=== PATIENT | female | born 1970 | race Caucasian/White ===

== ENCOUNTER → 2023-11-13 14:53 | Outpatient (REF) | payer OTHER, SELFPAY | LOC: WDC 14:53 | PROVIDERS: ATTENDING PHYSICIAN Obstetrics & Gynecology; FAMILY PHYSICIAN Family Medicine | DX: R92.8 Other abnormal and inconclusive findings on diagnostic imaging of breast (principal) | CPT/HCPCS: 76642 ==

== ENCOUNTER → 2023-12-10 06:27 | Day surgery (SDC) | payer OTHER, SELFPAY | LOC: GI 06:27 | PROVIDERS: ATTENDING PHYSICIAN Internal Medicine Gastroenterology | DX: Z12.11 Encounter for screening for malignant neoplasm of colon (principal); Z86.010 Personal history of colon polyps; K64.8 Other hemorrhoids; D12.2 Benign neoplasm of ascending colon; K63.5 Polyp of colon | CPT/HCPCS: 45385; 45380; 88305 ==

== ENCOUNTER 2024-06-10 06:17 | Day surgery (SDC) | payer OTHER, SELFPAY ==
[2024-05-27 09:33] VITALS: BMI 26.7
[2024-05-27 10:37] LABS: Hematocrit 44.8 % (37.0-47.0); Hemoglobin 15.2 g/dL (12.0-16.0); Mean Corp Hgb Conc. 33.9 g/dL (33.0-37.0); Mean Corpuscular Hgb 31.3 pg (27.0-31.0); Mean Corpuscular Volume 92.4 fL (81.0-99.0); Mean Platelet Volume 9.2 fL (7.4-10.4); Platelet Count 251 10^3/uL (130-400); Red Blood Cell Count 4.85 10^6/uL (4.20-5.40); Red Cell Dist. Width 14.4 % (11.5-14.5); White Blood Cell Count 7.3 10^3/uL (4.8-10.8)
[2024-05-27 11:30] LABS: Blood Urea Nitrogen 10 mg/dl (7-17); Calcium 9.1 mg/dl (8.4-10.2); Carbon Dioxide 21 mmol/L (22-30); Chloride 108 mmol/L (98-107); Estimated Creatinine Clearance 65 ml/min; Glucose 77 mg/dl (70-99); Sodium 142 mmol/L (135-145); eGFR > 60.00
[2024-06-10] VITALS (9 sets, daily range): BP systolic 122–150; BP diastolic 74–103; BMI 26.7
[2024-06-10] MEDS: TYLENOL 1000 MG PO (08:17)
== END 2024-06-10 12:10 | disposition home or self-care (01) ==
LOC: SDS 06:17
PROVIDERS: ATTENDING PHYSICIAN Otolaryngology; FAMILY PHYSICIAN Family Medicine
DX: J34.2 Deviated nasal septum (principal); J34.3 Hypertrophy of nasal turbinates; R31.0 Gross hematuria
CPT/HCPCS: 30520; 30140; 36415; 80048; 85027; 93005

== ENCOUNTER 2024-09-21 16:14 | Inpatient (IN) | payer OTHER, SELFPAY ==
[2024-09-21] VITALS (29 sets, daily range): BP systolic 49–160; BP diastolic 31–116; BMI 27.2
--- NOTE | 2024-09-21 10:24 | EDRN ---
This RN informed patient of wait and was instructed to return to the . Pt stated ' Are you serious? I came in by ambulance and have to sit in the waiting room?' Pt informed that EKG and blood tests were performed and that even when arriving via
EMS a patient can be sent to the waiting room. Pt again very angry towards this RN and stated ' I can not believe that since I came by ambulance I am going to the waiting room'. Pt again informed that the bloodwork and EKG were performed and the ER
doctor reviewed the EKG. Pt shown where the triage bathroom was to change out of gown. Pt then ambulated with steady gait to the waiting room.
[2024-09-21 10:38] LABS: % Basophils 0.9 % (0-2); % Eosinophils 2.8 % (0-6); % Immature Granulocytes 0.4 % (0-0.5); % Lymphocytes 40.6 % (20.5-51.1); % Monocytes 7.1 % (1.7-9.3); % Neutrophils 48.2 % (42.2-75.2); Absolute Basophils 0.1 10^3/uL (0-0.2); Absolute Eosinophils 0.2 10^3/uL (0-0.7); Absolute Lymphocytes 2.8 10^3/uL (1.2-3.4); Absolute Monocytes 0.5 10^3/uL (0.1-0.6); Absolute Neutrophils 3.3 10^3/uL (1.4-6.5); Hematocrit 46.6 % (37.0-47.0); Hemoglobin 15.5 g/dL (12.0-16.0); Mean Corp Hgb Conc. 33.3 g/dL (33.0-37.0); Mean Corpuscular Hgb 30.5 pg (27.0-31.0); Mean Corpuscular Volume 91.6 fL (81.0-99.0); Nucleated Red Blood Cells % 0 %; Platelet Count 240 10^3/uL (130-400); Red Blood Cell Count 5.09 10^6/uL (4.20-5.40); Red Cell Dist. Width 13.5 % (11.5-14.5); White Blood Cell Count 6.8 10^3/uL (4.8-10.8)
[2024-09-21 10:48] LABS: ALT (SGPT) 12 U/L (0-35); AST (SGOT) 19 U/L (14-36); Albumin 4.9 g/dl (3.5-5.0); Alkaline Phosphatase 60 U/L (38-126); Blood Urea Nitrogen 15 mg/dl (7-17); Calcium 9.1 mg/dl (8.4-10.2); Carbon Dioxide 21 mmol/L (22-30); Chloride 107 mmol/L (98-107); Glucose 93 mg/dl (70-99); Potassium 3.8 mmol/L (3.5-5.1); Sodium 140 mmol/L (135-145); Total Bilirubin 0.8 mg/dl (0.2-1.3); Total Protein 7.7 g/dl (6.3-8.2); eGFR 59.71
[2024-09-21 10:59] LABS: Troponin I 0.025 ng/ml
--- NOTE | 2024-09-21 12:16 | ED.GENMED ---
History of Present Illness
<Lashon Kim PA-C - Last Filed: 09/21/24 15:34>
General
Chief Complaint: Chest Pain
Source: patient
Exam Limitations: none
Time Seen by Provider: 09/21/24 12:15
Nursing documentation reviewed up to this point in time: agreed with
History of Present Illness
History of Present Illness:
This is a 54-year-old female with past medical history of GERD presents emergency department today with concerns of midsternal chest pain radiating to left arm. She reports that this started this morning when she woke up. She got up and noticed
that while she was walking the pain seemed to get worse. She alerted her who helped her down the stairs and she almost collapsed in his arms due to the pain. She also notes some lightheadedness and shortness of breath with this as well.
She has not had any thing like this before. Patient does note that she has had bad heartburn the past few days and has been taking Tums without relief. She denies any upper back pain. She states that she vapes daily and her father and grandfather
had a large heart attack. She notes that when she called EMS, she received nitro and aspirin en route and this did seem to help her symptoms. Denies any fevers or chills, nausea or vomiting.
Past History
<Lashon Kim PA-C - Last Filed: 09/21/24 15:34>
Past History
ED Past Medical History: Other (migraines)
ED Past Surgical History: None
Social History
Tobacco: Non-smoker
Alcohol: None
Drug: None
Living: with family
Review of Systems
<Lashon Kim PA-C - Last Filed: 09/21/24 15:34>
Review of Systems
All Other Systems: ROS reviewed and negative except as documented in HPI and ROS
Phy Exam
<Lashon Kim PA-C - Last Filed: 09/21/24 15:34>
Physical Exam
Physical Exam:
General: Patient is well appearing and in no acute distress; non-toxic
Skin: Warm and dry, no rashes or lesions
Head: Normocephalic, atraumatic
Eyes: Sclera non-icteric. EOMs intact.
Cardiac: Regular rate and rhythm, no murmurs
Peripheral Vascular: 2+ radial pulses bilaterally
Pulm: Normal respiratory effort, no wheezes, rales, or rhonchi
Neuro: CN II-XII intact, no focal neurologic deficits. Sensation intact bilaterally.
Psychiatric: Appropriate mood and affect.
Scores
<Lashon Kim PA-C - Last Filed: 09/21/24 15:34>
Heart Score for Chest Pain Patients
STEMI patient?: No
History: Highly Suspicious
ECG: Nonspecific Repolarization
Age: >45 - <65 years
Risk Factors: 1 or 2 Risk Factors
Troponin: </= Normal Limit
Heart Score for Chest Pain Patients: 5
Heart Score Risk: 20.3% MACE over next 6 weeks
Course
<Lashon Kim PA-C - Last Filed: 09/21/24 15:34>
Orders/Labs/Results
Orders:
Orders
09/21/24 10:09
Electrocardiogram (*1) Urgent
Reason for Study: Chest Pain
09/21/24 10:10
EKG- Treatment ONCE
09/21/24 10:19
Complete Blood Count/With Diff Urgent
Comprehensive Metabolic Panel Urgent
Troponin I Urgent
09/21/24 12:28
Nitroglycerin Sublingual [Nitrostat (Sublingual)] 0.4 mg SL NOW STA
09/21/24 12:29
Electrocardiogram (*1) Urgent
Reason for Study: Chest Pain
09/21/24 12:30
EKG- Treatment ONCE
09/21/24 12:38
CR Chest - 2 Views Urgent
Comment:
Reason For Exam: substernal chest pain, shortness of breath
09/21/24 13:41
Troponin I Urgent
09/21/24 14:29
CARDIOLOGY CONSULT Urgent
Consulting Provider: Pasquale Felicinao
Was physician already notified: Yes
09/21/24 14:33
Heparin 4,000 units IV NOW STA
Heparin Protocol- PTT Orders As Directed
PTT per Heparin protocol: -Obtain CBC and baseline PTT - if not already collected.
-Obtain PTT 6 hours from start of infusion. Then, every 6 hours until 2 consecutive
PTT's are therapeutic. Then, PTT Daily.
-With each rate change, obtain PTT every 6 hours until 2 consecutive PTT's are
therapeutic. Then, PTT Daily.
Notify MD As Directed
Notify physician if: PTT is greater than or equal to 200.
09/21/24 14:39
Heparin 5,000 units .ROUTE .STK-MED ONE
Nitroglycerin 100 mg/250 ml [Nitroglycerin Premix] 100 mg in 250 ml .ROUTE .STK-MED
09/21/24 14:45
PTT Urgent
Comment: Obtain baseline before beginning heparin infusion if not already collected
Heparin 30508 Units/250 ml 25,000 units in 250 ml IV PER PROTOCOL
Weight to be used for heparin protocol in kilograms (kg):: 73
Protocol:: Cardiac Tx/Acute Coronary
PTT Goal Range to be used:: PTT 73 to 111 seconds
Order type:: Initial
INITIAL Infusion Dose (UNITS/KG/hr) & then follow protocol:: 15 units/kg/hr
Infusion Dose in UNITS/hr & then follow protocol (UNITS/hr):: 1,100
INFUSION RATE in mL/hr & then follow protocol (mL/hr):: 11
PTT less than or equal to 64 seconds:: Increase rate by 200 units/hr (+ 2 mL/hr)
PTT 64.1 to 72.9 seconds:: Increase rate by 100 units/hr (+ 1 mL/hr)
PTT 73 to 111 seconds:: Target Range. No change in rate.
PTT 111.1 to 130.9 seconds:: Decrease rate by 100 units/hr (- 1 mL/hr)
PTT 131 to 199.9 seconds:: HOLD for 1 hr. Then decrease rate by 200 units/hr (- 2 mL/hr)
PTT greater than or equal to 200 seconds:: HOLD for 2 hrs & Notify Provider. Then decrease by 200 units/hr (-
2 mL/hr)
Lab follow-up:: Each change, PTT q6h until 2 consecutive are therapeutic. Then PTT
daily.
09/21/24 14:55
EKG [Electrocardiogram (*1)] Stat
Reason for Study: Chest Pain
EKG- Treatment ONCE
09/21/24 Dinner
NPO
Allow oral meds: Yes
Allow clear liquids: Sips of Clears
Nitroglycerin 100 mg/250 ml [Nitroglycerin Premix] 100 mg in 250 ml IV PER PROTOCOL
Initial dose in mcg/min, then titrate:: 10
Titrate to keep:: Chest Pain Free
Titrate by mcg/min:: 5 mcg/min, may increase by 10 mcg/min if dose > 20 mcg/min
Frequency of titrations (minutes):: every 3-5 minutes
Maximum dose in mcg/min:: 200
Begin to taper infusion when:: Remained at goal for 2hrs
Taper by mcg/min:: 5 mcg/min
Frequency of taper (minutes) if patient maintains goal:: 30
Taper to off?: Yes
If infusion off & no longer maintaining goal:: Contact Provider
09/21/24 15:09
Ticagrelor [Brilinta] 180 mg .ROUTE .STK-MED ONE
09/21/24 15:17
Metoprolol [Lopressor] 25 mg PO NOW STA
09/21/24 15:21
Code Status As Directed
Resuscitation Status: Full Code
09/21/24 15:22
Admit Patient As Directed
Co-Sign Provider:
Level of Care: Inpatient admission
Assign to:: IVU
Physician / Group: [facility]LAUS, Dr. CLARA Feliciano
Diagnosis: NSTEMI
Reason for Hospitalization: NSTEMI, ACS
Expected length of stay greater than two midnights?: Yes
ELOS- Estimated Length of Stay in days: 2
I certify the patient meets the requirements for IP care: Yes
Activity As Directed
Activity Level: Out of Bed- Ad Maricel
Activity Frequency: Ad Maricel
Milk Deliverer Procedure As Directed
Cardiac Cath Procedure: cardiac catheterization
Notify MD As Directed
Notify physician if: immediately for chest pain or bleeding from access site(s)
Radial Artery Hemostasis Method As Directed
Instructions:: 3 mL out at 1 hour post placement of band
3 mL out at 1 1/2 hours post placement of band
3 mL out at 2 hours post placement of band
Off at 2 1/2 hours post placement of band
If any oozing or hemotoma occurs:: re-inflate band and call provider
Site Checks As Directed
Check access site for bleeding/hematoma: Yes
Comment: on arrival, Q15min x4, Q30min x2, Q1 hr x2, Q2 hr x2, Q4 hr or per
protocol
Vascular Checks As Directed
Location: distal to access site - pulse check
Frequency: Other
Comment: on arrival, Q15min x4, Q30min x2, Q1 hr x2, Q2 hr x2, Q4 hr or per protocol
Vital Signs As Directed
Frequency: Other
Additional Instructions:: on arrival, Q15min x4, Q30min x2, Q1 hr x2, Q2 hr x2, then Q4 hr or per unit
protocol
PRN Pain Medication Management As Directed
May give lesser potent ordered pain med per pt: Yes
preference::
Protocol:: Medication orders for pain may be administered in a
manner that supports deferring to patient preference
when the pt is:
- Requesting an ordered lesser potent pain medication.
Least to most potent pain medications are defined
as: acetaminophen < NSAID < tramadol < opioids
(morphine, oxycodone, hydromorphone).
- Requesting a lesser dose of the same medication IF
ORDERED.
- Requesting a less intrusive route of administration
if both routes are prescribed by the provider (PO <
IV).
09/23/24 06:00
Complete Blood Count/No Diff Q2D
Comment: Notify MD if platelet count is <130,000 or decreases by 50% from baseline
09/25/24 06:00
Complete Blood Count/No Diff Q2D
Comment: Notify MD if platelet count is <130,000 or decreases by 50% from baseline
09/27/24 06:00
Complete Blood Count/No Diff Q2D
Comment: Notify MD if platelet count is <130,000 or decreases by 50% from baseline
09/29/24 06:00
Complete Blood Count/No Diff Q2D
Comment: Notify MD if platelet count is <130,000 or decreases by 50% from baseline
10/01/24 06:00
Complete Blood Count/No Diff Q2D
Comment: Notify MD if platelet count is <130,000 or decreases by 50% from baseline
10/03/24 06:00
Complete Blood Count/No Diff Q2D
Comment: Notify MD if platelet count is <130,000 or decreases by 50% from baseline
10/05/24 06:00
Complete Blood Count/No Diff Q2D
Comment: Notify MD if platelet count is <130,000 or decreases by 50% from baseline
10/07/24 06:00
Complete Blood Count/No Diff Q2D
Comment: Notify MD if platelet count is <130,000 or decreases by 50% from baseline
Abnormal Lab Results
09/21/24 09/21/24
10:19 13:41
Carbon Dioxide 21 L mmol/L
(22-30)
Creatinine 1.1 H mg/dL
(0.6-1.0)
Troponin I 0.597 H* D ng/ml
09/21/24 10:19
09/21/24 10:19
Vital Signs
Initial and Last Documented VS:
Initial Vital Signs
Temp Pulse Resp BP Pulse Ox
98.5 F 98 18 149/102 97
09/21/24 10:20 09/21/24 10:20 09/21/24 10:20 09/21/24 10:20 09/21/24 10:20
Last Documented Vital Signs
Temp Pulse Resp BP Pulse Ox
98.5 F 94 8 140/98 96
09/21/24 10:20 09/21/24 15:25 09/21/24 12:47 09/21/24 15:25 09/21/24 15:20
<Pallavi Alvarez MD - Last Filed: 09/21/24 15:12>
Orders/Labs/Results
Orders:
Orders
09/21/24 10:09
Electrocardiogram (*1) Urgent
Reason for Study: Chest Pain
09/21/24 10:10
EKG- Treatment ONCE
09/21/24 10:19
Complete Blood Count/With Diff Urgent
Comprehensive Metabolic Panel Urgent
Troponin I Urgent
09/21/24 12:28
Nitroglycerin Sublingual [Nitrostat (Sublingual)] 0.4 mg SL NOW STA
09/21/24 12:29
Electrocardiogram (*1) Urgent
Reason for Study: Chest Pain
09/21/24 12:30
EKG- Treatment ONCE
09/21/24 12:38
CR Chest - 2 Views Urgent
Comment:
Reason For Exam: substernal chest pain, shortness of breath
09/21/24 13:41
Troponin I Urgent
09/21/24 14:29
CARDIOLOGY CONSULT Urgent
Consulting Provider: Pasquale Feliciano
Was physician already notified: Yes
09/21/24 14:33
Heparin 4,000 units IV NOW STA
Heparin Protocol- PTT Orders As Directed
PTT per Heparin protocol: -Obtain CBC and baseline PTT - if not already collected.
-Obtain PTT 6 hours from start of infusion. Then, every 6 hours until 2 consecutive
PTT's are therapeutic. Then, PTT Daily.
-With each rate change, obtain PTT every 6 hours until 2 consecutive PTT's are
therapeutic. Then, PTT Daily.
Notify MD As Directed
Notify physician if: PTT is greater than or equal to 200.
09/21/24 14:39
Heparin 5,000 units .ROUTE .STK-MED ONE
Nitroglycerin 100 mg/250 ml [Nitroglycerin Premix] 100 mg in 250 ml .ROUTE .STK-MED
09/21/24 14:45
PTT Urgent
Comment: Obtain baseline before beginning heparin infusion if not already collected
Heparin 09739 Units/250 ml 25,000 units in 250 ml IV PER PROTOCOL
Weight to be used for heparin protocol in kilograms (kg):: 73
Protocol:: Cardiac Tx/Acute Coronary
PTT Goal Range to be used:: PTT 73 to 111 seconds
Order type:: Initial
INITIAL Infusion Dose (UNITS/KG/hr) & then follow protocol:: 15 units/kg/hr
Infusion Dose in UNITS/hr & then follow protocol (UNITS/hr):: 1,100
INFUSION RATE in mL/hr & then follow protocol (mL/hr):: 11
PTT less than or equal to 64 seconds:: Increase rate by 200 units/hr (+ 2 mL/hr)
PTT 64.1 to 72.9 seconds:: Increase rate by 100 units/hr (+ 1 mL/hr)
PTT 73 to 111 seconds:: Target Range. No change in rate.
PTT 111.1 to 130.9 seconds:: Decrease rate by 100 units/hr (- 1 mL/hr)
PTT 131 to 199.9 seconds:: HOLD for 1 hr. Then decrease rate by 200 units/hr (- 2 mL/hr)
PTT greater than or equal to 200 seconds:: HOLD for 2 hrs & Notify Provider. Then decrease by 200 units/hr (-
2 mL/hr)
Lab follow-up:: Each change, PTT q6h until 2 consecutive are therapeutic. Then PTT
daily.
09/21/24 14:55
EKG [Electrocardiogram (*1)] Stat
Reason for Study: Chest Pain
EKG- Treatment ONCE
09/21/24 Dinner
NPO
Allow oral meds: Yes
Allow clear liquids: Sips of Clears
Nitroglycerin 100 mg/250 ml [Nitroglycerin Premix] 100 mg in 250 ml IV PER PROTOCOL
Initial dose in mcg/min, then titrate:: 10
Titrate to keep:: Chest Pain Free
Titrate by mcg/min:: 5 mcg/min, may increase by 10 mcg/min if dose > 20 mcg/min
Frequency of titrations (minutes):: every 3-5 minutes
Maximum dose in mcg/min:: 200
Begin to taper infusion when:: Remained at goal for 2hrs
Taper by mcg/min:: 5 mcg/min
Frequency of taper (minutes) if patient maintains goal:: 30
Taper to off?: Yes
If infusion off & no longer maintaining goal:: Contact Provider
09/21/24 15:09
Ticagrelor [Brilinta] 180 mg .ROUTE .STK-MED ONE
09/21/24 15:17
Metoprolol [Lopressor] 25 mg PO NOW STA
09/21/24 15:21
Code Status As Directed
Resuscitation Status: Full Code
09/21/24 15:22
Admit Patient As Directed
Co-Sign Provider:
Level of Care: Inpatient admission
Assign to:: IVU
Physician / Group: KLAUS, Dr. CLARA Feliciano
Diagnosis: NSTEMI
Reason for Hospitalization: NSTEMI, ACS
Expected length of stay greater than two midnights?: Yes
ELOS- Estimated Length of Stay in days: 2
I certify the patient meets the requirements for IP care: Yes
Activity As Directed
Activity Level: Out of Bed- Ad Maricel
Activity Frequency: Ad Maricel
Milk Deliverer Procedure As Directed
Cardiac Cath Procedure: cardiac catheterization
Notify MD As Directed
Notify physician if: immediately for chest pain or bleeding from access site(s)
Radial Artery Hemostasis Method As Directed
Instructions:: 3 mL out at 1 hour post placement of band
3 mL out at 1 1/2 hours post placement of band
3 mL out at 2 hours post placement of band
Off at 2 1/2 hours post placement of band
If any oozing or hemotoma occurs:: re-inflate band and call provider
Site Checks As Directed
Check access site for bleeding/hematoma: Yes
Comment: on arrival, Q15min x4, Q30min x2, Q1 hr x2, Q2 hr x2, Q4 hr or per
protocol
Vascular Checks As Directed
Location: distal to access site - pulse check
Frequency: Other
Comment: on arrival, Q15min x4, Q30min x2, Q1 hr x2, Q2 hr x2, Q4 hr or per protocol
Vital Signs As Directed
Frequency: Other
Additional Instructions:: on arrival, Q15min x4, Q30min x2, Q1 hr x2, Q2 hr x2, then Q4 hr or per unit
protocol
PRN Pain Medication Management As Directed
May give lesser potent ordered pain med per pt: Yes
preference::
Protocol:: Medication orders for pain may be administered in a
manner that supports deferring to patient preference
when the pt is:
- Requesting an ordered lesser potent pain medication.
Least to most potent pain medications are defined
as: acetaminophen < NSAID < tramadol < opioids
(morphine, oxycodone, hydromorphone).
- Requesting a lesser dose of the same medication IF
ORDERED.
- Requesting a less intrusive route of administration
if both routes are prescribed by the provider (PO <
IV).
09/23/24 06:00
Complete Blood Count/No Diff Q2D
Comment: Notify MD if platelet count is <130,000 or decreases by 50% from baseline
09/25/24 06:00
Complete Blood Count/No Diff Q2D
Comment: Notify MD if platelet count is <130,000 or decreases by 50% from baseline
09/27/24 06:00
Complete Blood Count/No Diff Q2D
Comment: Notify MD if platelet count is <130,000 or decreases by 50% from baseline
09/29/24 06:00
Complete Blood Count/No Diff Q2D
Comment: Notify MD if platelet count is <130,000 or decreases by 50% from baseline
10/01/24 06:00
Complete Blood Count/No Diff Q2D
Comment: Notify MD if platelet count is <130,000 or decreases by 50% from baseline
10/03/24 06:00
Complete Blood Count/No Diff Q2D
Comment: Notify MD if platelet count is <130,000 or decreases by 50% from baseline
10/05/24 06:00
Complete Blood Count/No Diff Q2D
Comment: Notify MD if platelet count is <130,000 or decreases by 50% from baseline
10/07/24 06:00
Complete Blood Count/No Diff Q2D
Comment: Notify MD if platelet count is <130,000 or decreases by 50% from baseline
Abnormal Lab Results
09/21/24 09/21/24
10:19 13:41
Carbon Dioxide 21 L mmol/L
(22-30)
Creatinine 1.1 H mg/dL
(0.6-1.0)
Troponin I 0.597 H* D ng/ml
09/21/24 10:19
09/21/24 10:19
Vital Signs
Initial and Last Documented VS:
Initial Vital Signs
Temp Pulse Resp BP Pulse Ox
98.5 F 98 18 149/102 97
09/21/24 10:20 09/21/24 10:20 09/21/24 10:20 09/21/24 10:20 09/21/24 10:20
Last Documented Vital Signs
Temp Pulse Resp BP Pulse Ox
98.5 F 94 8 140/98 96
09/21/24 10:20 09/21/24 15:25 09/21/24 12:47 09/21/24 15:25 09/21/24 15:20
Kelylt;Lashon Kim PA-C - Last Filed: 09/21/24 15:34>
MDM/Problems Addressed
Differential Diagnosis Includes:
ACS, pneumothorax, PE
MDM/Problems Addressed:
54-year-old female presents emergency department today with concerns of chest pain radiating to the left arm. She called EMS and received aspirin from her received nitro en route to the ER. I gave her another dose of nitro which helped
with the pain. Her initial troponin was 0.025 and her repeat troponin was 0.597, she still has pain present, cardiology notified. Dr. Feliciano in the see patient. Patient will go to the senior cytogenetics laboratory director. Nitro drip and heparin drip initiated. Case discussed
with hospitalist. Patient referred for admission.
Chronic conditions affecting care:
GERD, diverticulitis
<Lashon Kim PA-C - Last Filed: 09/21/24 15:34>
*Pulse Oximetry
Patient hypoxic: no
Data Reviewed
Review of Other/Old Records Reveals: Records (Reviewed ER physician documentation from 05/05/2018 patient seen for bite wound, no previous hospital discharge summaries to review)
Source: patient and records
<Pallavi Alvarez MD - Last Filed: 09/21/24 15:12>
*Critical Care Note
Total Time (30-74mins, 75-104mins- exclusive of procedures): 45
comment:
Critical care statement: A total of 45 minutes of critical care time was provided for this patient. This includes management of unstable vital signs, evaluation of the patient at bedside, reviewing the patient's pertinent medical records, ordering
and reviewing studies, arranging urgent treatment with development of a management plan, evaluating patient's response to treatment, frequent reassessment, and discussion with consultants. This time was separate from time utilized to perform the
aforementioned documented procedures.
<Lashon Kim PA-C - Last Filed: 09/21/24 15:34>
Patient Management
Discussion with other providers: Auto Transmission Mechanic (cardiology)
Escalation/DeEscalation of care consider admission/obs:
case discussed with my attending
ED Attending Note
<Lashon Kim PA-C - Last Filed: 09/21/24 15:34>
-
Portions of this chart may have been created with voice recognition software.� Occasional wrong word or��sound alike� substitutions may have occurred due to the inherent limitations of voice recognition software.
<Pallavi Alvarez MD - Last Filed: 09/21/24 15:12>
ED Attending Note
Patient seen and examined by attending physician: Yes
I performed the substantive portion of visit, reviewed & personally made and approve the management plan that is documented in note by myself or HARISH.: Yes
ED Attending Note:
I have seen and evaluated the patient with a [id number] encounter. I have spoken to the [PA] and involved in the medical history, the physical exam, medical decision making.
Evaluation and management service: agree unless noted differently below.
Results interpretation: agree unless noted differently below.
54-year-old woman with history of feeding emergency room with chest pain. Patient states that around 9:30 AM she was laying in bed when she developed midsternal chest pain. It continued to worsen and started to radiate down her left arm. She has
been having some shortness of breath associated with it. She does state over the past few days has been having some reflux that she is been taking Tums for. She called her who is going to bring her however patient stated the pain severely
worsened so they called 911. Upon their arrival they gave her nitroglycerin as well as aspirin. She states the pain is 3 out of 10 from a 10 out of 10. She does state that her grandfather early from heart attack. Patient has never
seen cardiology. No hemoptysis leg swelling or recent travel. She has never had any chest pain with exertion before or any chest pain like this
GENERAL: in no acute distress
HEENT: normocephalic, extraocular movements intact, moist oral mucosa
NECK: normal inspection
RESPIRATORY: no respiratory distress, clear to auscultation bilaterally
CARDIOVASCULAR: regular rate and rhythm, 2+ radial pulses bilaterally
ABDOMEN/: soft, non-distended, non-tender to palpation, no rebound or guarding
EXTREMITIES: non-tender, no edema/swelling
NEUROLOGIC: awake and alert, moves all extremities
SKIN: warm
54-year-old woman presenting to the emergency department chest pain. Vitals are unremarkable and exam is reassuring. Concern for ACS. History exam not consistent with PE. Consider dissection however less likely given story. Will check x-ray.
Initial blood work does show a troponin of 0.025 EKG per my interpretation with normal sinus rhythm however will repeat EKG to see if there is any dynamic changes.
Repeat EKG without any significant changes per my interpretation. Delta troponin is positive. We did discuss with cardiology who evaluated patient at bedside. We are proceeding with heparin drip as well as a nitro drip. She will go up to the
Milk Deliverer. She already received aspirin. Will give Brilinta as well.
Discharge Plan
Departure
Patient Disposition: Admit
Date of Disposition: 09/21/24
Time of Disposition: 15:13
Admit to: Med/Surg
Presentation/result/management discussed w/ accepting MD/DO: Hospitalist
Patient with high blood pressure during this ER visit?: Yes
Condition: Fair
Discharge Problem:
Non-ST elevation MS (NSTEMI)
Prescriptions:
No Action
amitriptyline 50 mg Tablet
50 mg PO HS
topiramate [Topamax] 100 mg Tablet
125 mg PO HS
Patient Comments:
migraines
eszopiclone [Lunesta] 3 mg Tablet
3 mg PO HS
Nurtec ODT 75 mg Tablet,Disintegrating
75 mg PO DAILYPRN PRN (Reason: migraines)
cholecalciferol (vitamin D3) [Vitamin D3] 125 mcg (5,000 unit) Tablet
125 mcg PO DAILY
hydrocodone-acetaminophen 7.5-325 mg tablet
1 tab PO BIDPRN PRN (Reason: severe pain)
magnesium oxide 500 mg magnesium Tablet
500 mg PO MOWEFR
naproxen 500 mg tablet
500 mg PO DAILY
Referrals:
Jacobo Bear MD [Family Provider] -
Interventions
Interventions:
*Risk Screen - Suicide Last Done: 09/21/24 10:20
*General Assessment Last Done: 09/21/24 10:20
*Neglect/Abuse Screening Last Done: 09/21/24 10:20
ED- Cardiac Assessment Last Done: 09/21/24 12:48
Discharge Date and Time
Print Language: TURKMEN
[2024-09-21] MEDS: NITROSTAT (SUBLINGUAL) 0.4 MG SL (12:47)
[2024-09-21 14:19] LABS: Troponin I 0.597 ng/ml
[2024-09-21] MEDS: HEPARIN 4000 UNITS IV (14:46)
[2024-09-21] MEDS: HEPARIN 25000 UNITS/250 ML IV (14:54)
[2024-09-21] MEDS: NITROGLYCERIN PREMIX 250 IV (14:56)
--- NOTE | 2024-09-21 15:07 | CON.CAR ---
Addendum entered and electronically signed by Pasquale Feliciano MD 09/21/24 16:29:
54-year-old woman with history of migraines, possibly GERD had been having symptoms of substernal discomfort better with Gaviscon over the last 2 weeks. This morning she awoke with a different substernal discomfort and pressure/heaviness radiating
to the left arm associated with shortness of breath. She was given aspirin and 911 was called. She received nitro in the emergency department and in the ambulance with some improvement. Pain was 10 out of 10, and has improved but persisted down
to 2-3 out of 10.
PMH: As above
PSH: Appendectomy, orthopedic surgery
SH: , 2 children with a 34-year-old who has special needs, smoked many years ago, smokes, no alcohol, , employed
FH: Not markedly positive for premature CAD
Medications, allergies: Per summary screen
Pleasant 54-year-old woman in mild distress, 140/98, pulse 90s, resp rate 8, afebrile, head neck exam unremarkable, lungs clear, regular rate and rhythm, no murmurs or gallops abdomen benign pulses intact extremities without clubbing cyanosis or
edema,
EKG #2 with MA segment depression and subtle diffuse ST segment elevation, cannot exclude septal FL
Hemoglobin 15.5 white count 6.8, troponin 0.6, was 0.25, creatinine 1.1, CO2 21
Impression:
Suspected ACS/non-ST segment elevation FL
Consider pericarditis
History of migraines
Plan:
Aspirin/heparin/IV nitro -ticagrelor ordered
Proceed to Quality Technician
Discussed with patient at length.
Original Note:
Consultation
Consultation Request
Date/Time Consultation Requested: 09/21/24
Date/Time Consultation Performed: 09/21/24
Requesting Provider: Jluio HARDY in the ER
Performing Provider: Dr. CLARA Feliciano
Reason for Consultation: Chest pain, elevated Troponin
Medical History
-
History of Present Illness:
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 Patient has been having chest pain for the last 2 weeks described as heartburn that is worse with meals and relieved with Gaviscon. No exertional
chest pain. Patient awoke this morning with different chest pain described as a heavier pressure-like pain from the time she awoke. Pain radiating to LUE which was also new. Patient's ahd to help her with walking due to pain and they called
911. Patient had improvement in chest pain with NTG SL x1 in ambulance. Patient also given aspirin en route to . Chest pain recurred in the ER and additional NTG SL x1 given with improvement, but not complete resolution of pain. Cardiology called
to come and see patient.
PMH:
h/o migraine HAs
Past Medical History
Past Medical History: Other (in HPI)
Past Surgical History: Appendectomy and Orthopedic
Social History
Tobacco: Non-Smoker (but smokes)
Alcohol: None
Drug: None
Personal:
Living: With Family
Employment: Employed
Family History
Family History: CAD (father and paternal grandfather with h/o FL)
Allergies / Home Medications
Allergy/AdvReac Type Severity Reaction Status Date / Time
cyclobenzaprine HCl Allergy seizure Verified 09/21/24 10:20
[From Flexeril]
BEES Allergy Swelling Uncoded 06/10/24 07:54
�Medication �Instructions �Recorded �Confirmed �Type
amitriptyline 50 mg tablet 50 mg PO HS 06/04/24 09/21/24 History
cholecalciferol (vitamin D3) 125 125 mcg PO DAILY 06/04/24 09/21/24 History
mcg (5,000 unit) tablet (Vitamin
D3)
eszopiclone 3 mg tablet (Lunesta) 3 mg PO HS 06/04/24 09/21/24 History
rimegepant 75 mg disintegrating 75 mg PO DAILYPRN PRN migraines 06/04/24 09/21/24 History
tablet (Nurtec ODT)
topiramate 100 mg tablet (Topamax) 125 mg PO HS 06/04/24 09/21/24 History
hydrocodone 7.5 mg-acetaminophen 1 tab PO BIDPRN PRN severe pain 09/21/24 09/21/24 History
325 mg tablet
magnesium oxide 500 mg PO MOWEFR 09/21/24 09/21/24 History
naproxen 500 mg tablet 500 mg PO DAILY 09/21/24 09/21/24 History
Review of Systems
-
History Source: Patient and Family ( sitting bedside)
All other systems: Negative unless noted
Physical Exam
Vital Signs
Temp Pulse Resp BP Pulse Ox
98.5 F 87 8 147/103 100
09/21/24 10:20 09/21/24 14:47 09/21/24 12:47 09/21/24 14:47 09/21/24 14:47
GEN: NAD. AAOx3
HEENT: EOMI, MMM
LUNGS: RA. CTA B/L, no wheeze
CV: SR on tele. Reg, S1/S2, no murmur
ABD: soft, BS+, NT, ND
EXT: No clubbing, cyanosis, lesions or edema B/L
NEURO: Gross non-focal
SKIN: Warm, dry and pink. No rash
Lab Results
09/21/24 10:19
09/21/24 10:19
Troponin I 0.597 ng/ml H* D 09/21/24 13:41
Impression / Plan
-
PCP: Brian FP
Card: None
Impression:
Chest pain/ACS
NSTEMI
h/o migraine HAs
Plan:
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 Patient has been having chest pain for the last 2 weeks described as heartburn that is worse with meals and relieved with Gaviscon. No exertional
chest pain. Patient awoke this morning with different chest pain described as a heavier pressure-like pain from the time she awoke. Pain radiating to LUE which was also new. Patient's ahd to help her with walking due to pain and they called
911. Patient had improvement in chest pain with NTG SL x1 in ambulance. Patient also given aspirin en route to . Chest pain recurred in the ER and additional NTG SL x1 given with improvement, but not complete resolution of pain. Cardiology called
to come and see patient.
-ECG reviewed by me is SR without acute ST changes.
-BP 151/102 upon my arrival to room and then 147/103 on repeat by me. Will start Nitro gtt at 10 mcg now and then titrate until pain free.
-Heparin bolus 4000 units and then gtt ordered by me
-Aspirin given prior to arrival.
-IT APPLICATIONS DEVELOPER giving Brilinta loading dose using verbal order in the ER.
-Will give Lopressor 25 mg PO x1 now
-Patient was not taking any BP meds prior to admission.
-Trend Troponin. Initial Troponin 0.025 then 0.597. Will manage as NSTEMI/ACS for now.
-Check CVE in AM. Patient was not taking a statin prior to admission.
-Check echo
Scores
DICK for NSTEMI
Age >/= 65: No
>/=3 CAD risk factors-HTN,High Chol,Fam hx CAD,DM,Smoker: No
Known CAD (stenosis >/=50%): No
ASA use in past 7 days: No
Severe angina (>/= 2 episodes in 24 hrs): Yes
EKG ST Changes >/= 0.5mm: No
Positive cardiac marker: Yes
Score: 2
Risk at 14 days-mortality, new/recurrent FL, severe ischemia: Low Risk- 8% Risk at 14 days- all cause mortality, new or recurrent FL, or severe recurrent ischemia requiring urgent revascularization
[2024-09-21] MEDS: LOPRESSOR 25 MG PO (15:25)
[2024-09-21] MEDS: MORPHINE SULFATE 2 MG IV (15:37)
--- NOTE | 2024-09-21 16:00 | ITS.CL.CATH ---
[facility] - Catheterization
Cardiac Catheterization
Procedure Report:
LEFT HEART CATHETERIZATION
Date of Procedure: September 21, 2024
Referring: Pasquale Feliciano
PROCEDURES:
1. Left heart catheterization, coronary angiogram.
2. Ultrasound-guided access
3. Left ventricular gram
INDICATION: Concern for high risk NSTEMI with ongoing chest discomfort
ACCESS: Right radial
Ultrasound was utilized for vascular access. The radial artery was visualized under ultrasound, and the vessel was patent and pulsatile. An image was stored permanently in the patient's medical record. Under direct ultrasound guidance, a 6 K[place]
sheath was inserted into the artery using a micropuncture kit through a modified Seldinger technique.
HEMODYNAMICS : (mmHg)
AO (s/d) : 134/90
LV (s/d) : 138/15
LVEDP : 32
CORONARY FINDINGS
DOMINANCE: Right
LEFT MAIN: The left main artery is a large-caliber vessel which gives rise to the left anterior descending artery and the left circumflex artery. There is minimal luminal irregularities.
LEFT ANTERIOR DESCENDING: The left anterior descending artery is a medium caliber vessel which gives rise to 2 major diagonal branches as it courses to the anterior interventricular groove and wraps around the apex. There is mild diffuse
atherosclerotic plaque.
CIRCUMFLEX: The left circumflex artery is a medium caliber vessel which gives rise to 1 high rising large OM branch. There is minimal luminal irregularities.
RIGHT CORONARY ARTERY: The right coronary artery is a medium caliber, dominant vessel which gives rise to the right posterior descending artery and the right posterolateral system. There is minimal luminal irregularities.
Ventriculography: In a single-plane HUTTON projection there is severe hypokinesis of mid to apical anterior and inferior zurita with hyperdynamic base consistent with likely Takotsubo or stress-induced cardiomyopathy. Estimated left ventricular
ejection fraction is 35 to 40% by visual estimation.
SEDATION: 38 minutes of procedural sedation was utilized. An independent family practice medical doctor was present to assist with and help manage the patient's level of consciousness and physiologic status.
RADIATION SUMMARY: Fluoro Time (min): 5.5, Dose (mGy): 395.98, DAP (Gy.cm2) : 30.06
Closure Device: Vascular band over right radial artery, 10 cc of air.
CONCLUSIONS
1. No obstructive coronary artery disease.
2. Significantly elevated LVEDP.
3. In a single-plane HUTTON projection there is severe hypokinesis of mid to apical anterior and inferior zurita with hyperdynamic base consistent with likely Takotsubo or stress-induced cardiomyopathy. Estimated left ventricular ejection fraction is
35 to 40% by visual estimation.
RECOMMENDATIONS
1. Wean radial band per protocol.
2. Goal-directed medical therapy for likely stress-induced/Takotsubo cardiomyopathy.
3. Aggressive management of cardiovascular risk factors per
4. Check full echocardiogram to assess biventricular function and rule out any significant valvular abnormalities.
5. Eventual referral for outpatient cardiac rehab.
Angy Taylor MD, FACC, [facility]
--- NOTE | 2024-09-21 16:46 | HPS.HSE ---
Family Physician
-
Family Physician: Jacobo Bear
Chief Complaint
-
CP
History of Present Illness
The patient is a 54 yo woman with PMH significant for migraine headaches, who presents to the ED after waking up this morning and noting severe substernal chest pain that is radiating to her left arm, associated with dyspnea. She's been having
epigastric discomfort the past 2 weeks, however this morning it was worse as noted. She called 911, and took 4 aspirin. In the ED, she is found to be hypertensive, w persistent CP, and a delta troponin, and was started on hep gtt and ntg gtt. CP
persisted despite nitroglycerin gtt. Cardiology consultation is placed from the ED, and they are taking her for cardiac catheterization today.
No n/v/d, no fever, no radiation to back. Still with radiation down left arm.
Medical History
Past Medical History
Past Medical History: Reports Other (Migraine headaches)
Past Surgical History: Reports Appendectomy and Orthopedic
Social History
Tobacco: Non-smoker
Alcohol: None
Drug: None
Personal:
Living: With Family
Family History
Family History: CAD (Father ' maker' DC in his 70s, grandfather multiple MIs)
Allergies / Home Medications
Allergies reflects when Allergies were last updated in [facility].
Home Medications with original date entered in [facility]
Allergy/Medication List:
Allergies
Allergy/AdvReac Type Severity Reaction Status Date / Time
cyclobenzaprine HCl Allergy seizure Verified 09/21/24 10:20
[From Flexeril]
BEES Allergy Swelling Uncoded 06/10/24 07:54
Home Medications
amitriptyline 50 mg tablet 50 mg PO HS 06/04/24
cholecalciferol (vitamin D3) 125 mcg (5,000 unit) tablet (Vitamin D3) 125 mcg PO DAILY 06/04/24
eszopiclone 3 mg tablet (Lunesta) 3 mg PO HS 06/04/24
rimegepant 75 mg disintegrating tablet (Nurtec ODT) 75 mg PO DAILYPRN PRN migraines 06/04/24
topiramate 100 mg tablet (Topamax) 125 mg PO HS 06/04/24
hydrocodone 7.5 mg-acetaminophen 325 mg tablet 1 tab PO BIDPRN PRN severe pain 09/21/24
magnesium oxide 500 mg PO MOWEFR 09/21/24
naproxen 500 mg tablet 500 mg PO DAILY 09/21/24
Review of Systems
-
A 12 point ROS was completed and negative except as noted: Yes
Physical Exam
Vital Signs
Vital Signs
Temp Pulse Resp BP Pulse Ox
98.5 F 94 8 140/98 96
09/21/24 10:20 09/21/24 15:25 09/21/24 12:47 09/21/24 15:25 09/21/24 15:20
Physical Exam
General: Well Developed, Well Nourished and Appears in Distress (due to CP)
HEENT: NormoCephalic, Anicteric and Moist mucous membranes
Respiratory: Clear
Cardiac: S1/S2 and Regular Rhythm
GI: Soft, Non Tender and Non Distended
Musculoskeletal: No Clubbing, No Cyanosis and No Edema
Skin: Warm and Dry
Psych: Calm
Laboratory Results
-
09/21/24 10:19
09/21/24 10:19
Laboratory Results
APTT 30.0 Sec (23.4-35.0) 09/21/24 14:45
Total Bilirubin 0.8 mg/dl (0.2-1.3) 09/21/24 10:19
AST 19 U/L (14-36) 09/21/24 10:19
ALT 12 U/L (0-35) 09/21/24 10:19
Alkaline Phosphatase 60 U/L (38-126) 09/21/24 10:19
Troponin I 0.597 ng/ml H* D 09/21/24 13:41
Data Reviewed
-
Diagnostic Radiology: Image Personally Visualized and interpreted and Report Reviewed by me (CXR NAD)
Medical Tests (Nuc Med, Echo, EKG etc): Image Personally Visualized and interpreted and Report Reviewed by me ( EKG #2 with DC segment depression and subtle diffuse ST segment elevation, cannot exclude septal DC)
Impression/Plan
-
IMPRESSION:
The patient is a 54 yo woman with PMH significant for migraine headaches, who presents to the ED after waking up this morning and noting severe substernal chest pain that is radiating to her left arm, associated with dyspnea. She's been having
epigastric discomfort the past 2 weeks, however this morning it was worse as noted. She called 911, and took 4 aspirin. In the ED, she is found to be hypertensive, w persistent CP, and a delta troponin, and was started on hep gtt and ntg gtt. CP
persisted despite nitroglycerin gtt. Cardiology consultation is placed from the ED, and they are taking her for cardiac catheterization today.
No n/v/d, no fever, no radiation to back. Still with radiation down left arm.
#NSTEMI, in setting of HTN emergency, risk factors family history
-IVU admit
-Cards Cx, taking her to cath now from ED
-IVF
-cont IV hep gtt and IV ntg gtt
-IV Morphine once in ED
-O2 per NC for symptoms relief
-serial trop
-echo
-add on Mg, TSH
# HTN urgency
-IV ntg gtt, monitor BP and adjust drip as needed per protocol
#Migraines
-cont Topamax, amitriptyline
DVT proph-hep gtt
Full Code
[2024-09-21] MEDS: NSS 1000 IV (17:30)
--- NOTE | 2024-09-21 18:20 | PTCARENOTE ---
Pt received post procedure with no c/o of any chest pain. Right radial band intact and WNL. SR, rate in the 70's
[2024-09-21] MEDS: TOPAMAX 125 MG PO (21:08)
[2024-09-21] MEDS: ELAVIL 50 MG PO (21:08)
[2024-09-21] MEDS: TYLENOL 650 MG PO (22:17)
[2024-09-21] MEDS: DILAUDID 0.25 MG IV (23:03)
[2024-09-21] MEDS: MELATONIN 10 MG PO (23:59)
[2024-09-22 02:19] VITALS: BP 108/72
[2024-09-22 02:31] LABS: Hematocrit 44.3 % (37.0-47.0); Hemoglobin 15.1 g/dL (12.0-16.0); Mean Corp Hgb Conc. 34.1 g/dL (33.0-37.0); Mean Corpuscular Hgb 30.4 pg (27.0-31.0); Mean Corpuscular Volume 89.3 fL (81.0-99.0); Mean Platelet Volume 9.1 fL (7.4-10.4); Platelet Count 249 10^3/uL (130-400); Red Blood Cell Count 4.96 10^6/uL (4.20-5.40); Red Cell Dist. Width 13.5 % (11.5-14.5); White Blood Cell Count 11.2 10^3/uL (4.8-10.8)
[2024-09-22 02:56] LABS: Blood Urea Nitrogen 18 mg/dl (7-17); Carbon Dioxide 17 mmol/L (22-30); Chloride 107 mmol/L (98-107); Estimated Creatinine Clearance 64 ml/min; Glucose 96 mg/dl (70-99); HDL Cholesterol 73 mg/dl; LDL Cholesterol, Calculated 162 mg/dl; Potassium 3.7 mmol/L (3.5-5.1); Sodium 138 mmol/L (135-145); Total Cholesterol 261 mg/dl (50-199); Triglyceride 132 mg/dl (10-149); Very Low Density Lipoprotein 26 mg/dl (0-30); eGFR > 60.00
--- NOTE | 2024-09-22 04:15 | PTCARENOTE ---
Pt NSR on monitor. C/o middle chest Pain 7/10. EKG completed. CVPA made aware, Dilaudid x1 given. Pain improved to 2/10 with movements, and 0/10 a rest. Pt independent in the room.
[2024-09-22 06:00] VITALS: BMI 26.3
[2024-09-22 07:09] VITALS: BP 104/74
[2024-09-22] MEDS: TOPROL XL 25 MG PO (08:03)
[2024-09-22] MEDS: LOW STRENGTH ASPIRIN 81 MG PO (08:03)
[2024-09-22] MEDS: LASIX 20 MG IV (08:04)
--- NOTE | 2024-09-22 08:24 | W.PN.CARDCBS ---
Addendum entered and electronically signed by Pasquale Feliciano MD 09/22/24 11:20:
50-year-old woman who presented with classic anginal symptoms new-onset at rest, without dramatic EKG changes but troponin that deng to 0.6, underwent cardiac catheterization that showed luminal irregularities and ventriculography that suggested
Takotsubo cardiomyopathy.
PMH: Possible GERD, migraines
Current meds: Furosemide 20 mg IV daily, metoprolol ER 25 mg a day, aspirin 81 mg a day, amitriptyline 50 mg at bedtime, Topamax 125 mg a day
108/72, pulse 91, resp rate 16, 147/110, lungs are clear, no distress, head neck exam unremarkable, abdomen benign extremities without clubbing cyanosis or edema distal pulses intact
White count 11.2, hemoglobin 15.1, platelets 249, BUN/creatinine 18 and 1,Peak troponin 1.2
EKG pending
Echo pending
Total cholesterol 261, LDL 162, HDL is 73
Cardiac catheterization 09/21/2024: Luminal irregularities, EF 35-40% with severe LAD distribution wall motion abnormality consistent with Takotsubo cardiomyopathy
Impression:
Likely Takotsubo cardiomyopathy
Nonobstructive CAD
Hypercholesterolemia
Possible GERD
Migraines
Plan:
Overall, she looks well. However she has luminal irregularities at age 54 on coronary angiography and has a total cholesterol of 261.
She also has significant LV dysfunction, presumably related to Takotsubo syndrome. LVEDP was markedly elevated.
Will await echocardiography. Will hold Lasix for now.
Continue aspirin, check proBNP, add losartan 12.5 mg daily, continue metoprolol ER
Add pantoprazole for what could have been reflux symptoms prior to admission.
Add rosuvastatin 20 mg a day.
Given LV dysfunction etc. would prefer to observe her overnight discharge in a.m.
Original Note:
Today's Communication / Plan
-
Stop Lasix
Check pro-BNP
New to Toprol XL and losartan
New to losartan
Likely d/c to home tomorrow
52 min in face to face and coordination of care
Impression / Plan
-
PCP: Brian RODARTE
Card: None
Impression:
Chest pain/ACS
Elevated Troponin
Takotsubo CM ER 35% by v-gram 09/21/24
Elevated LVEDP
No obstructive CAD by cath 09/21/24
luminal irregularities LMN, LAD, Circ and RCA
Hyperlipidemia
h/o migraine HAs
Echo 09/22/24: Study pending
Plan:
-Patient with chest pain on admission and Troponin increased to 0.597 while in the ER with ongoing chest pain. Patient with only luminal irregularities on cath and v-gram suggested severe hypokinesis of mid to apical anterior and inferior zurita with
hyperdynamic base consistent that is likely Takotsubo or stress-induced cardiomyopathy. Estimated left ventricular ejection fraction is 35 to 40% by visual estimation. Cath report reviewed by me.
-Check another Troponin now, last Troponin was still trending up at 1.17 on 09/22/24 early AM. Will manage as a non-ischemic myocardial injury Troponin elevation
-Check echo ordered by me
-New to aspirin 81 mg daily
-New to Toprol XL 25 mg daily
-New to losartan 12.5 mg daily starting 09/22/24. Follow BP
-LDL 162. New to Crestor 5 mg daily
-LVEDP was 32 on cath 09/21/24 and patient given Lasix 20 mg IV that evening and again 09/22/24 AM. Will stop Lasix. No evidence of acute HF.
-Chest pain overnight that was relieved with Dilaudid. No ECG available from that chest pain episode. Await Troponin, ordered by me
-Likely d/c to home 09/23/24
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 Patient has been having chest pain for the last 2 weeks described as heartburn that is worse with meals and relieved with Gaviscon. No
exertional chest pain. Patient awoke this morning with different chest pain described as a heavier pressure-like pain from the time she awoke. Pain radiating to LUE which was also new. Patient's ahd to help her with walking due to pain and
they called 911. Patient had improvement in chest pain with NTG SL x1 in ambulance. Patient also given aspirin en route to . Chest pain recurred in the ER and additional NTG SL x1 given with improvement, but not complete resolution of pain.
Cardiology called to come and see patient.
Progress Note - Home Health Care Physician
Subjective
Date of Service: September 22, 2024
Chest pain overnight that improved with Dilaudid
Objective
Labs:
09/22/24 02:17
09/22/24 02:17
Labs
Hgb 15.1 g/dL (12.0-16.0) 09/22/24 02:17
Hct 44.3 % (37.0-47.0) 09/22/24 02:17
Plt Count 249 10^3/uL (130-400) 09/22/24 02:17
APTT 30.0 Sec (23.4-35.0) 09/21/24 14:45
Sodium 138 mmol/L (135-145) 09/22/24 02:17
Potassium 3.7 mmol/L (3.5-5.1) 09/22/24 02:17
BUN 18 mg/dl (7-17) H 09/22/24 02:17
Creatinine 1.0 mg/dL (0.6-1.0) 09/22/24 02:17
Glucose 96 mg/dl (70-99) 09/22/24 02:17
Troponins
09/21/24 09/21/24 09/21/24
10:19 13:41 18:35
Troponin I 0.025 0.597 H* D Cancelled
09/21/24 09/22/24
19:56 02:17
Troponin I 0.920 H* D 1.170 H* D
Vital Signs and I&O:
Vital Signs
Temp Pulse Resp BP Pulse Ox
98.1 F 91 16 108/72 96
09/22/24 02:19 09/22/24 07:00 09/22/24 02:19 09/22/24 02:19 09/22/24 02:19
Vital Signs
Temp Pulse Resp BP Pulse Ox
98.1 F 91 16 108/72 96
09/22/24 02:19 09/22/24 07:00 09/22/24 02:19 09/22/24 02:19 09/22/24 02:19
Intake & Output
09/20/24 09/21/24 09/22/24 09/23/24
06:59 06:59 06:59 06:59
Intake Total 1050 / 1050
Balance 1050 / 1050
Physical Exam
Physical Exam
GEN: NAD. AAOx3
HEENT: EOMI, MMM
LUNGS: RA. No audible wheeze
CV: SR on tele.
ABD: soft, BS+, NT, ND
EXT: Right radial without hematoma or ecchymosis. No edema B/L
NEURO: Gross non-focal
SKIN: No rash
--- NOTE | 2024-09-22 09:38 | CARDSERVLU ---
Echocardiogram with Lumason completed after protocol screening completed. Allergies verified.
Patent IV site: __Rt median antecubital 20 G PC__
IV site flushed with0.9 % Na Cl pre and post administration.
Diluted bolus method utilized to enhance visualization of ventricular zurita.
Total volume given: __3__ mL
Patient tolerated all procedures well without complications.
[2024-09-22] MEDS: PROTONIX 40 MG PO (09:51)
[2024-09-22] MEDS: COZAAR 12.5 MG PO (09:51)
[2024-09-22 11:14] VITALS: BP 110/74
[2024-09-22 11:46] LABS: NT-proBNP 4050 pg/ml
--- NOTE | 2024-09-22 12:43 | CM ---
Chart reviewed. Patient is independent of ADLS, lives with her and disabled adult daughter in a 2 [address], 4 SUELLEN, 0 DME. Plan is for the patient to return home. CM to follow
[2024-09-22 16:53] LABS: Troponin I 0.815 ng/ml
[2024-09-22] MEDS: CRESTOR 20 MG PO (17:24)
[2024-09-22 19:25] VITALS: BP 100/80
[2024-09-22] MEDS: ELAVIL 50 MG PO (21:27)
[2024-09-22] MEDS: TOPAMAX 125 MG PO (21:27)
[2024-09-22 22:37] VITALS: BP 117/82
[2024-09-23 04:11] VITALS: BP 70/53
[2024-09-23 04:12] VITALS: BP 76/57
[2024-09-23 04:13] VITALS: BP 81/64
[2024-09-23 07:32] VITALS: BP 93/61
--- NOTE | 2024-09-23 08:14 | W.PN.CARDCBS ---
Addendum entered and electronically signed by Myriam Melchor PA-C 09/23/24 09:29:
[id number]
Addendum entered and electronically signed by Ja Spain MD 09/23/24 09:05:
I saw and examined the patient.
The Test Driver's note was reviewed and I agree with the note.
Comment:
GEN: No distress, awake, Ox3
HEENT: supple, anicteric, mmm
LUNGS: CTA, no wheezes/rales
CV: Reg, S1/S2, 1/6 syst LSB, no gallop
ABD: soft, BS+, NT/ND
EXT: No edema
NEURO: Gross non-focal
SKIN: No rash
Plan:
Had some dizziness yesterday. LVEF about 40% on echo. Would stop Cozaar and decrease Toprol to 12.5 mg daily.
Would not discharge on Lasix. Okay to continue Crestor.
Watch for hypotension. OK for D/C
Original Note:
Today's Communication / Plan
-
>30 min d/c time including providing patient with a letter to give to airline for her missed trip
Impression / Plan
-
PCP: Brian RODARTE
Card: None
Impression:
Chest pain/ACS
Elevated Troponin
Takotsubo CM ER 35% by v-gram 09/21/24
Elevated LVEDP
No obstructive CAD by cath 09/21/24
luminal irregularities LMN, LAD, Circ and RCA
Hyperlipidemia
h/o migraine HAs
Echo 09/22/24: EF 35 to 40%, severe hypokinesis of the mid to distal anterior, anteroseptal and apical zurita. Stage I diastolic dysfunction, normal RV size and function, no significant valve disease
Plan:
-No recurrence of chest pain overnight.
-Patient with only luminal irregularities on cath and imaging suggested likely Takotsubo or stress-induced cardiomyopathy with severe hypokinesis of mid to apical anterior and inferior zurita with hyperdynamic base.
-Peak Troponin 1.17. Will manage as a non-ischemic myocardial injury Troponin elevation
-New to aspirin 81 mg daily
-Hypotension after attempts at IV diuresis for LVEDP of 32 at time of cath. Patient was given Lasix 20 mg IV on 09/21/24 PM and again 09/22/24 AM. No evidence of acute HF. Lasix stopped.
-New to Toprol XL 25 mg daily, but will reduce dose to 12.5 mg daily due to hypotension
-New to losartan 12.5 mg daily starting 09/22/24, but will stop due to hypotension.
-LDL 162. New to Crestor 20 mg daily
-D/C to home 09/23/24, follow up arranged
HPI: Patient came to [facility] with chest pain and is being admitted with NSTEMI and plans for clinical lab clerk today. Patient has been having chest pain for the last 2 weeks described as heartburn that is worse with meals and relieved with Gaviscon. No
exertional chest pain. Patient awoke this morning with different chest pain described as a heavier pressure-like pain from the time she awoke. Pain radiating to LUE which was also new. Patient's ahd to help her with walking due to pain and
they called 911. Patient had improvement in chest pain with NTG SL x1 in ambulance. Patient also given aspirin en route to . Chest pain recurred in the ER and additional NTG SL x1 given with improvement, but not complete resolution of pain.
Cardiology called to come and see patient.
Progress Note - Hospital Admissions Officer
Subjective
Date of Service: September 23, 2024
No chest pain overnight, felt lightheaded standing at sink
Objective
Labs:
09/22/24 02:17
09/22/24 02:17
Labs
Hgb 15.1 g/dL (12.0-16.0) 09/22/24 02:17
Hct 44.3 % (37.0-47.0) 09/22/24 02:17
Plt Count 249 10^3/uL (130-400) 09/22/24 02:17
APTT 30.0 Sec (23.4-35.0) 09/21/24 14:45
Sodium 138 mmol/L (135-145) 09/22/24 02:17
Potassium 3.7 mmol/L (3.5-5.1) 09/22/24 02:17
BUN 18 mg/dl (7-17) H 09/22/24 02:17
Creatinine 1.0 mg/dL (0.6-1.0) 09/22/24 02:17
Glucose 96 mg/dl (70-99) 09/22/24 02:17
Troponins
09/21/24 09/21/24 09/21/24
10:19 13:41 18:35
Troponin I 0.025 0.597 H* D Cancelled
09/21/24 09/22/24 09/22/24
19:56 02:17 08:35
Troponin I 0.920 H* D 1.170 H* D Cancelled
09/22/24 09/22/24
08:50 16:07
Troponin I Cancelled 0.815 H*
Vital Signs and I&O:
Vital Signs
Temp Pulse Resp BP Pulse Ox
97.7 F 84 18 93/61 100
09/23/24 07:32 09/23/24 08:00 09/23/24 07:32 09/23/24 07:32 09/23/24 07:32
Vital Signs
Temp Pulse Resp BP Pulse Ox
97.7 F 84 18 93/61 100
09/23/24 07:32 09/23/24 08:00 09/23/24 07:32 09/23/24 07:32 09/23/24 07:32
Intake & Output
09/21/24 09/22/24 09/23/24 09/24/24
06:59 06:59 06:59 06:59
Intake Total 1050 / 1050 450 / 450
Balance 1050 / 1050 450 / 450
Physical Exam
Physical Exam
GEN: NAD. AAOx3
HEENT: EOMI, MMM
LUNGS: RA. No audible wheeze
CV: SR on tele.
ABD: ND
EXT: No edema B/L
NEURO: Gross non-focal
SKIN: No rash
--- NOTE | 2024-09-23 08:36 | PTCARENOTE ---
Assumed care of pt from prev nsg shift; Pt AAOX3 w/no c/o CP or SOB. Pt does have chronic back pain for which she is taking PRN Tylenol for while here. Pt's VS stable w/HR in the 70's, BP 93/61 this AM. 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
around site, no signs or symptoms of bleeding or hematoma. Plan of care ongoing.
[2024-09-23] MEDS: LOW STRENGTH ASPIRIN 81 MG PO (09:13)
[2024-09-23] MEDS: TOPROL XL 25 MG PO (09:15)
[2024-09-23] MEDS: PROTONIX 40 MG PO (09:15)
--- NOTE | 2024-09-23 09:22 | W.DS.TRANS ---
DC Summary - Recruiting Manager
-
Discharge Instructions:
Discharge Diagnosis/Procedures Cardiac catheterization, Takotsubo or stress
induced cardiomyopathy, hyperlipidemia (high
cholesterol)
Diet Low Fat
Activity Other activity
Additional Activity See attached sheet
Driving Restrictions No driving for 24 hours
Bathing Restrictions OK to Shower
Instructions:
Stand-Alone Forms: DC Instructions- Cath/EP Lab
Changes to Home Medications: Yes
Discharge Medications:
DC Medications w/original date entered in [facility]
amitriptyline 50 mg tablet 50 mg PO HS 06/04/24
cholecalciferol (vitamin D3) 125 mcg (5,000 unit) tablet (Vitamin D3) 125 mcg PO DAILY 06/04/24
eszopiclone 3 mg tablet (Lunesta) 3 mg PO HS 06/04/24
rimegepant 75 mg disintegrating tablet (Nurtec ODT) 75 mg PO DAILYPRN PRN migraines 06/04/24
topiramate 100 mg tablet (Topamax) 125 mg PO HS 06/04/24
hydrocodone 7.5 mg-acetaminophen 325 mg tablet 1 tab PO BIDPRN PRN severe pain 09/21/24
magnesium oxide 500 mg PO MOWEFR 09/21/24
naproxen 500 mg tablet 500 mg PO DAILY 09/21/24
aspirin 81 mg chewable tablet 81 mg PO DAILY Heart disease/condition #30 tabs 09/23/24
metoprolol succinate 25 mg tablet,extended release 24 hr (Toprol XL) 12.5 mg (1/2 x 25 mg) PO DAILY Heart disease/condition #30 tabs 09/23/24
rosuvastatin 20 mg tablet 20 mg PO QPM High cholesterol #30 tabs 09/23/24
Home Medication Changes
new to aspirin, Toprol XL and Crestor
Pending Results: No
[2024-09-23] MEDS: COZAAR PO (09:53)
--- NOTE | 2024-09-23 11:25 | PTCARENOTE ---
Pt's IV line & quality assurance monitor chassis D/C'd; D/C instructions discussed w/pt & pt's spouse. Pt transported out via wheelchair w/spouse driving pt home. Pt left w/personal belongings incl cell phone & shelver.
--- NOTE | 2024-09-23 13:33 | PN.CDI ---
CDI
- -
CDI:
Physician Documentation Request
Admit Date: 09/21/24 16:14
Dear Myriam Melchor,
H&P states '.....in setting of HTN emergency....' also 'HTN urgency IV ntg gtt, monitor BP ....'
Some initial blood pressures
Selected Entries
09/21/24
10:20 09/21/24
14:42 09/21/24
15:00
Blood pressure 149/102 151/102 143/111
09/21/24
15:30 09/21/24
17:05 09/21/24
17:07
Blood pressure 160/100 151/116 149/110
09/21/24
18:05
Blood pressure 153/108
In an attempt to clarify potentially conflicting documentation, please clarify the type of hypertension
Essential primary hypertension
Hypertensive Urgency - B/P is severely elevated (systolic > or = to 180 or diastolic > or = to 110) but there is no associated organ damage. Symptoms may include: headache, shortness of breath, nosebleeds, severe anxiety. Treatment usually consists
of addition to or adjusting of oral medications and does not generally necessitate hospitalization.
Hypertensive Emergency - B/P is severely elevated (systolic > or = to 180 or diastolic > or = to 110) but can occur at lower levels especially in patients who did not previously have high B/P. There is usually associated organ damage. Symptoms may
include: memory loss, LOC, CVA, PA, angina, renal failure, pulmonary edema. Generally requires more aggressive treatment and a hospitalization.
Other (please specify)
Use of terms such as suspected, likely, concern for, or probable (associated with a specific diagnosis that is being evaluated, monitored, or treated as if it exists) are acceptable and can be coded in the inpatient setting, when documented at the
time of discharge.
Thank you,
Daria Cheatham RN, BSN
CDI Specialist
tiger text
Please use your independent medical judgment in providing your response.
== END 2024-09-23 11:28 | disposition home or self-care (01) | DRG 287 ==
LOC: IVU 16:14
PROVIDERS: Emergency Medicine; Internal Medicine Interventional Cardiology; Nurse Practitioner; Physician Assistant; Physician Assistant Medical; ADMITTING PHYSICIAN Internal Medicine Cardiovascular Disease; EMERGENCY PHYSICIAN Student in an Organized Health Care Education/Training Program; FAMILY PHYSICIAN Family Medicine
PROC: B2151ZZ Fluoroscopy of Left Heart using Low Osmolar Contrast (ICD-10-PCS; 2024-09-21)
PROC: B2111ZZ Fluoroscopy of Multiple Coronary Arteries using Low Osmolar Contrast (ICD-10-PCS; 2024-09-21)
PROC: 4A023N7 Measurement of Cardiac Sampling and Pressure, Left Heart, Percutaneous Approach (ICD-10-PCS; 2024-09-21)
DX: I51.81 Takotsubo syndrome (principal); I5A Non-ischemic myocardial injury (non-traumatic); I16.0 Hypertensive urgency; G43.909 Migraine, unspecified, not intractable, without status migrainosus; F17.290 Nicotine dependence, other tobacco product, uncomplicated; Z82.49 Family history of ischemic heart disease and other diseases of the circulatory system
CPT/HCPCS: 71046; 76937; 80048; 80053; 80061; 83880; 84484; 85025; 85027; 85730; 93005; 93306; 93458; 96374; 96375; 99152; 99153; 99291; Q9950; Q9967

== ENCOUNTER → 2024-12-21 13:56 | Outpatient (REF) | payer OTHER, SELFPAY | LOC: HWRCS 13:56 | PROVIDERS: ATTENDING PHYSICIAN Physician Assistant; FAMILY PHYSICIAN Family Medicine | DX: I51.81 Takotsubo syndrome (principal) | CPT/HCPCS: 93306 ==